=== PATIENT | female | born 1995 | race Caucasian/White ===

== ENCOUNTER 2021-08-12 23:02 | Emergency (ER) | payer SELFPAY ==
[~2021-08-12] VITALS: Ht 157.5 cm; Wt 108.9 kg
--- NOTE | 2021-08-13 00:36 | NUR ---
Patient does not wish to proceed with medical care recommended by Dr. Ji. Patient given information related to possible complications, up to and including , which could occur as a result of leaving the hospital at this time. Patient verbalizes understanding of risks involved due to leaving against medical advice. Patient has signed AMA form.
[2021-08-13 00:37] VITALS: BP 121/70
== END 2021-08-13 00:37 | disposition left against medical advice (07) ==
LOC: ER 23:13
DX: T40.411A Poisoning by fentanyl or fentanyl analogs, accidental (unintentional), initial encounter (principal); R41.82 Altered mental status, unspecified; Y92.89 Other specified places as the place of occurrence of the external cause